=== PATIENT | female | born 1995 | race Hispanic/Latino ===

== ENCOUNTER 2019-12-13 16:07 | Inpatient (IN) | payer OTHER, MEDICAID ==
[~2019-12-13] VITALS: Ht 147.3 cm; Wt 71.7 kg
[2019-12-13] MEDS ORDERED: LACTATED RINGERS 500 ML 500 ML IV PRN (17:00)
[2019-12-13] MEDS ORDERED: EPHEDRINE SULFATE 50 MG/ML AMPULE IVP PRN (17:00)
[2019-12-13] MEDS ORDERED: NALOXONE HCL 0.4 MG/1 ML ML IV PRN (17:00)
[2019-12-13] MEDS ORDERED: LACTATED RINGERS 1000ML 1,000 ML IV PRN (17:00)
[2019-12-13] MEDS ORDERED: AMPICILLIN 2GM+NS 100ML 100 ML IV SCH (17:45)
[2019-12-13 18:33] LABS: HEMATOCRIT 30.9 % (36-48); MEAN CORPUSCULAR HEMOGLOBIN 28.5 pg (27.0-33.0); MEAN CORPUSCULAR VOLUME 83.7 fL (79-99); PLATELET COUNT (AUTO) 340 K/uL (130-400); RED BLOOD CELL COUNT(AUTO) 3.69 MIL/uL (4.00-5.50); RED CELL DISTRIBUTION WIDTH 13.2 % (11.0-15.5); WHITE BLOOD COUNT (AUTO) 16.8 K/uL (4.8-10.8)
[2019-12-13] MEDS: AMPICILLIN 1GM+NS 50ML 50 ML IV SCH (21:57)
[2019-12-14] MEDS: AMPICILLIN 1GM+NS 50ML 50 ML IV SCH ×2 (02:06→05:45)
[2019-12-14] MEDS ORDERED: OXYTOCIN-LR 20 UNITS/1000 ML 1,000 ML IV ONE (04:22)
[2019-12-14] MEDS ORDERED: OXYTOCIN 10 USP UNITS/ML 20 UNIT in LACTATED RINGERS 1000ML 1,000 ML IV SCH (05:00)
[2019-12-14] MEDS ORDERED: MEPERIDINE-PF 50 MG/ML SYG IVP SCH (06:30)
[2019-12-14] MEDS ORDERED: PROMETHAZINE HCL 25 MG/ML 1ML AMPULE IM SCH (06:30)
[2019-12-14] MEDS ORDERED: MEPERIDINE-PF 50 MG/ML SYG ONE (06:31)
[2019-12-14] MEDS ORDERED: LIDOCAINE HCL 1% 20 ML VIAL INJ PRN (07:30)
[2019-12-14] MEDS ORDERED: ROPIVACAINE 0.2% 100ML VIAL 100 ML EP SCH (07:30)
[2019-12-14] MEDS ORDERED: LACTATED RINGERS 500 ML 500 ML IV PRN (07:30)
[2019-12-14] MEDS ORDERED: METHYLERGONOVINE MALEATE 0.2 MG/1 ML ML ONE (11:52)
[2019-12-14] MEDS ORDERED: ACETAMINOPHEN-CODEINE 300/30MG TAB PO PRN (12:15)
[2019-12-14] MEDS ORDERED: BENZOCAINE/LANOLIN/ALOE VERA 60 ML AEROSOL TP PRN (12:15)
[2019-12-14] MEDS ORDERED: ACETAMINOPHEN 325 MG TAB PO PRN (12:15)
[2019-12-14] MEDS ORDERED: LANOLIN 30GM OINTMENT TP PRN (12:15)
[2019-12-14] MEDS ORDERED: WITCH HAZEL 1 PAD TP PRN (12:15)
[2019-12-14] MEDS ORDERED: OXYTOCIN-LR 20 UNITS/1000 ML 1,000 ML IV SCH (12:15)
--- NOTE | 2019-12-14 14:40 | NUR ---
PATIENT ORIENTED TO ROOM. FUNDUS FIRM, BLEEDING SCANT. INSTRUCTED PATIENT ON USE AND DESIRED EFFECTS OF LANOLIN, DERMAPLAST SPRAY AND SITZ BATH. ADVISED PATIENT TO CALL WITH ANY NEEDS OR CONCERNS.
[2019-12-14 14:41] VITALS: BP 127/80
[2019-12-14] MEDS ORDERED: PNV1TABL17 PO (16:17)
[2019-12-14 16:21] VITALS: BP 124/73
[2019-12-14] MEDS: IBUPROFEN 600 MG TABLET PO PRN (17:35)
[2019-12-14 19:39] VITALS: BP 107/58
[2019-12-14] MEDS: DOCUSATE SODIUM 100 MG CAP PO SCH (21:13)
[2019-12-14 23:22] VITALS: BP 96/55
[2019-12-15 03:14] VITALS: BP 92/59
[2019-12-15 05:32] LABS: HEMATOCRIT 25.8 % (36-48); MEAN CORPUSCULAR HEMOGLOBIN 28.2 pg (27.0-33.0); MEAN CORPUSCULAR HGB CONC 33.3 g/dL (32.0-36.0); MEAN CORPUSCULAR VOLUME 84.6 fL (79-99); PLATELET COUNT (AUTO) 254 K/uL (130-400); RED BLOOD CELL COUNT(AUTO) 3.05 MIL/uL (4.00-5.50); RED CELL DISTRIBUTION WIDTH 13.4 % (11.0-15.5); WHITE BLOOD COUNT (AUTO) 23.3 K/uL (4.8-10.8)
[2019-12-15] MEDS: AMPICILLIN 1GM+NS 50ML 50 ML IV SCH (06:00)
[2019-12-15] MEDS: IBUPROFEN 600 MG TABLET PO PRN (06:52)
[2019-12-15] MEDS ORDERED: DIPH,PERTUSS(ACELL),TET VAC/PF 0.5 ML VIAL IM ONE (07:00)
[2019-12-15 07:34] VITALS: BP 98/60
[2019-12-15 08:09] LABS: HEPATITIS Bs ANTIGEN SCREEN P Negative (Negative)
[2019-12-15] MEDS: DOCUSATE SODIUM 100 MG CAP PO SCH (09:47)
[2019-12-15 11:41] VITALS: BP 92/65
--- NOTE | 2019-12-15 11:50 | NUR ---
DR AWAN CALLED AND WAS UPDATED ON PATIENT'S STATUS AND LAB RESULTS. NEW ORDERS RECEIVED, PATIENT OKAY FOR DISCHARGE.
--- NOTE | 2019-12-15 13:05 | NUR ---
DISCHARGE INSTRUCTIONS READ AND EXPLAINED TO PATIENT. NO NEW RX GIVEN. HANDOUT FOR COVID19 REVIEWED WITH PATIENT. PATIENT VOICED UNDERSTANDING ON ALL INSTRUCTIONS.
--- NOTE | 2019-12-15 15:25 | NUR ---
DISCHARGE PATIENT LEFT UNIT VIA WHEELCHAIR WITH BABY IN ARMS. PERSONAL VEHICLE USED FOR TRANSPORTATION. BABY SECURE IN CARSEAT. NO COMPLAINTS OR CONCERNS ADDRESSED FROM PATIENT ON DISCHARGE.
== END 2019-12-15 15:25 | disposition home or self-care (01) | DRG 807 ==
LOC: OBSVTOIN 16:07 → LDH 16:07 → WSH 12-14 14:40
PROVIDERS: ADMIT Obstetrics & Gynecology; ATTEND Obstetrics & Gynecology
PROC: 10E0XZZ Delivery of Products of Conception, External Approach (ICD-10-PCS; principal; 2019-12-14)
PROC: 0KQM0ZZ Repair Perineum Muscle, Open Approach (ICD-10-PCS; 2019-12-14)
PROC: 3E0334Z Introduction of Serum, Toxoid and Vaccine into Peripheral Vein, Percutaneous Approach (ICD-10-PCS; 2019-12-14)
PROC: 3E0234Z Introduction of Serum, Toxoid and Vaccine into Muscle, Percutaneous Approach (ICD-10-PCS; 2019-12-14)
DX: O42.913 Preterm premature rupture of membranes, unspecified as to length of time between rupture and onset of labor, third trimester (principal); Z37.0 Single live birth; Z67.11 Type A blood, Rh negative; O70.1 Second degree perineal laceration during delivery; Z3A.36 36 weeks gestation of pregnancy; Z23 Encounter for immunization
CPT/HCPCS: 36415; 83033; 85027; 86592; 86850; 86900; 86901; 87340; 90715; A4314; A4606; G0378; J0290; J2175; J2210; J2590; J2791; J2795; J7120

== ENCOUNTER 2021-10-21 17:44 | Observation (INO) | payer MEDICAID, OTHER ==
[~2021-10-21] VITALS: Ht 147.3 cm; Wt 82.6 kg
[~2021-10-21 17:44] MED LIST: PNV1TABL17 PO
[2021-10-21 17:45] VITALS: BP 131/85
[2021-10-21 20:09] LABS: APPEARANCE,URINE CLEAR (CLEAR); BILIRUBIN,URINE NEGATIVE (NEGATIVE); COLOR,URINE YELLOW (YELLOW); GLUCOSE, URINE (UA) NEGATIVE (NEGATIVE); KETONES,URINE NEGATIVE (NEGATIVE); LEUKOCYTE ESTERASE ,URINE SMALL (NEGATIVE); NITRATE,URINE NEGATIVE (NEGATIVE); OCCULT BLOOD,URINE NEGATIVE (NEGATIVE); PROTEIN,URINE NEGATIVE (NEGATIVE); UROBILINOGEN,URINE 0.2 mg/dL (0.2-1.0)
[2021-10-21 20:16] LABS: BACTERIA,URINE Rare /HPF (None Seen); CALCIUM OXALATE CRYSTALS,UR Few /LPF (None Seen); RBC,URINE 0-1 /HPF (0-1); SQUAMOUS EPITHELIAL CELL,UR Few /HPF (0-2); YEAST,URINE BUDDING Rare /HPF (None Seen)
[2021-10-30] MEDS ORDERED: DOCU-116 PO (09:28)
[2021-10-30] MEDS ORDERED: IBUP-2077 PO (09:28)
== END 2021-10-21 20:15 | disposition home or self-care (01) ==
LOC: EDH 17:44 → LDH 17:45 → EDH 18:31
PROVIDERS: ADMIT Obstetrics & Gynecology; ATTEND Obstetrics & Gynecology
DX: O26.893 Other specified pregnancy related conditions, third trimester (principal); R10.9 Unspecified abdominal pain; Z3A.38 38 weeks gestation of pregnancy
CPT/HCPCS: 81001; 87088; G0378 ×2